=== PATIENT | female | born 1985 | race Caucasian/White ===

== ENCOUNTER 2019-07-31 08:05 | Inpatient (IN) | payer OTHER ==
[2019-07-31] MEDS ORDERED: SUCCINYLCHOLINE CHLORIDE 200 MG/10 ML INJ MDV ONE (08:08)
[2019-07-31] MEDS ORDERED: ETOMIDATE 20 MG/10 ML INJ IV ONE ×2 (08:08→08:19)
[2019-07-31] MEDS ORDERED: SODIUM CHLORIDE 0.9% 1000 ML 1,000 ML IV ONE ×2 (08:18→08:30)
[2019-07-31] MEDS ORDERED: SUCCINYLCHOLINE CHLORIDE 200 MG/10 ML INJ MDV IV ONE (08:19)
[2019-07-31] MEDS ORDERED: MINERAL OIL/PETROLATUM, WHITE OPHTH OINT 3.5 GM OU PRN (08:20)
[2019-07-31] MEDS ORDERED: LIP THERAPY VASELINE TP PRN (08:20)
--- NOTE | 2019-07-31 08:28 | Emergency Department Report ---
ED Altered Mental Status HPI - General Stated Complaint: UNRESPONSIVE Time Seen by Provider: 07/31/19 08:18 - History of Present Illness Initial Comments: Ms. Clifton is a 34 yo female with history of diabetes mellitus and anxiety who was found unresponsive at home by her brother. Brother is at the bedside. He heard her baby son crying. Her father wanted to know why she was not attending to him. Brother found her slumped behind the bathroom door. Upon arrival EMS notice agonal respirations. Extensor posturing. Pinpoint pupils. EMS was Unable to intubate because her mouth was clenched. Euglycemic 146 [address]. Brother unable to recall any additional history. Diabetes diagnosis appears to be new. Medications: Metformin meloxicam propanolol for anxiety viamin D Second brother explained that Ms. Clifton has had 2 weeks of shortness of breath and chest pain. She was evaluated at urgent care center recently. She has also had some fatigue. She had been taking Xanax for anxiety. On Saturday her PCP 2 days ago this medication was changed to propranolol. No indication of depression according to brothers. She texted her [id number] 2:30 am this morning she was not feeling this well. MD Complaint: altered mental status, decreased responsiveness -: This morning Severity: severe Consistency of Symptoms: constant Context: diabetes Treatments Prior to Arrival: oxygen - Related Data Allergies Allergy/AdvReac Type Severity Reaction Status Date / Time No Known Allergies Allergy Unverified 07/31/19 10:22 ED Review of Systems ROS: Stated complaint: UNRESPONSIVE Other details as noted in HPI Comment: Unobtainable due to pts medical conditions (critically ill altered M ENTAL STATUS) ED Past Medical Hx - Past Medical History Previous Medical History?: Yes Hx Diabetes: Yes - Surgical History Additional Surgical History: brother is unable to recall - Family History Family history: other (unknown) - Social History Smoking Status: Never Smoker Substance Use Type: None Other Social History: works at an office job, lives with 2 year old son, brother and father ED Physical Exam - General General appearance: obtunded, other (extensor posturing, grunting, extensor response to pain) - Head Head exam: Present: atraumatic, normocephalic - Eye Pupils: Present: other (pinpoint ) - ENT ENT exam: Present: normal orophraynx - Neck Neck exam: Present: normal inspection - Respiratory Respiratory exam: Present: respiratory distress, accessory muscle use, other (grunting) - Cardiovascular Cardiovascular Exam: Present: normal rhythm, tachycardia, normal heart sounds. Absent: systolic murmur, diastolic murmur - GI/Abdominal GI/Abdominal exam: Present: soft. Absent: distended, guarding, rebound - Extremities Exam Extremities exam: Present: normal inspection - Neurological Exam Neurological exam: Present: altered - Psychiatric Psychiatric exam: Present: other (altered unresponsive) - Skin Skin exam: Present: pallor, other (cool) - Assessment Assessment Interval: Baseline - Level of Consciousness 1a. Level of Consciousness: coma/unresponsive - LOC Questions 1b. LOC Questions: aphasic - LOC Command 1c. LOC Commands: performs no tasks correctly - Best Gaze 2. Best Gaze: normal - Visual 3. Visual: bilateral hemianopia - Facial Palsy 4. Facial Palsy: normal symmetrical movement - Motor Arm 5a. Motor Arm Left: some gravity effort 5b. Motor Arm Right: some gravity effort - Motor Leg 6a. Motor Leg Left: some gravity effort 6b. Motor Leg Right: some gravity effort - Limb Ataxia 7. Limb Ataxia: absent - Sensory 8. Sensory: coma/unresponsive - Best Language 9. Best Language: coma/unresponsive - Dysarthria 10. Dysarthria: mute/anarrthric - Extinction and Inattention 11. Extinction/Inattention: complete neglect - Scoring Total Score: 27 Stroke Severity: Severe Stroke ED Course Vital Signs 07/31/19 07/31/19 07/31/19 08:25 09:27 09:55 Temperature 98.5 F Pulse Rate 116 H Respiratory 26 H Rate Blood Pressure 137/117 O2 Sat by Pulse 100 106 H 100 Oximetry 07/31/19 12:46 Temperature Pulse Rate 90 Respiratory Rate Blood Pressure 90/45 O2 Sat by Pulse 97 Oximetry - Central Line Placement Right IJ Consent Obtained: emergent situation Time Out Performed: Yes Patient Placed on Monitor/Pulse Ox: Yes Prep: mask, gown, gloves, other (drape, cap ) Central Line Prep: Chlorhexidine scrub Ultrasound Used for Placement: Yes Central Line Lumen Inserted: triple Bloods Obtained for Lab: Yes Central Line Position: good blood return, all ports aspirated, flus, sutured in place with nyl Dressing Applied: Tegaderm Post Procedure X-Ray: tip of catheter in good p Patient Tolerated Procedure: well Complications: none - Intubation Time Out Performed: Yes Sedative: Etomidate Mg Given: 20 Mg Given: 120 Laryngoscope: fiberoptic video scope Size: 3 ET Tube Size: 7.5 Tube Secured Depth (cm): 22 Tube Secured Location: lips Tube Placement Confirmation: visualized tube passing t, equal breath sounds bilat, no breath sounds over epi Patient Tolerated Procedure: well Intubation Complications: none - Lab Data Result diagrams: 07/31/19 08:59 07/31/19 08:59 Lab Results 07/31/19 07/31/19 07/31/19 Range/Units 08:59 08:59 08:59 WBC 17.1 H (4.5-11.0) K/mm3 RBC 4.79 (3.65-5.03) M/mm3 Hgb 7.6 L (10.1-14.3) gm/dl Hct 26.9 L (30.3-42.9) % MCV 56 L (79-97) fl MCH 16 L (28-32) pg MCHC 28 L (30-34) % RDW 19.3 H (13.2-15.2) % Plt Count 346 (140-440) K/mm3 Lymph % (Auto) 11.2 L (13.4-35.0) % [place] % (Auto) 4.6 (0.0-7.3) % Eos % (Auto) 0.2 (0.0-4.3) % Baso % (Auto) 0.3 (0.0-1.8) % Lymph # 1.9 (1.2-5.4) K/mm3 [place] # 0.8 (0.0-0.8) K/mm3 Eos # 0.0 (0.0-0.4) K/mm3 Baso # 0.1 (0.0-0.1) K/mm3 Seg Neutrophils % 83.7 H (40.0-70.0) % Seg Neutrophils # 14.3 H (1.8-7.7) K/mm3 PT 13.5 (12.2-14.9) Sec. INR 1.04 (0.87-1.13) APTT 20.3 L (24.2-36.6) Sec. POC ABG pH (7.35-7.45) POC ABG pO2 (80-105) POC ABG HCO3 (22-26 mml/L) POC ABG Total CO2 (23-27mmol/L) POC ABG O2 Sat POC ABG Base Excess ((-2) - (+3)mmol/L) FiO2 % Sodium (137-145) mmol/L Potassium (3.6-5.0) mmol/L Chloride (98-107) mmol/L Carbon Dioxide (22-30) mmol/L Anion Gap mmol/L BUN (7-17) mg/dL Creatinine (0.7-1.2) mg/dL Estimated GFR ml/min BUN/Creatinine Ratio % Glucose (65-100) mg/dL Lactic Acid 3.10 H* (0.7-2.0) mmol/L Calcium (8.4-10.2) mg/dL Total Bilirubin (0.1-1.2) mg/dL AST (5-40) units/L ALT (7-56) units/L Alkaline Phosphatase (35-129) units/L Ammonia (25-60) umol/L Total Creatine Kinase (30-135) units/L Troponin T (0.00-0.029) ng/mL Total Protein (6.3-8.2) g/dL Albumin (3.9-5) g/dL Albumin/Globulin Ratio % TSH (0.270-4.200) mlU/mL Salicylates (2.8-20.0) mg/dL Plasma/Serum Alcohol (0-0.07) % 07/31/19 07/31/19 07/31/19 Range/Units 08:59 08:59 08:59 WBC (4.5-11.0) K/mm3 RBC (3.65-5.03) M/mm3 Hgb (10.1-14.3) gm/dl Hct (30.3-42.9) % MCV (79-97) fl MCH (28-32) pg MCHC (30-34) % RDW (13.2-15.2) % Plt Count (140-440) K/mm3 Lymph % (Auto) (13.4-35.0) % [place] % (Auto) (0.0-7.3) % Eos % (Auto) (0.0-4.3) % Baso % (Auto) (0.0-1.8) % Lymph # (1.2-5.4) K/mm3 [place] # (0.0-0.8) K/mm3 Eos # (0.0-0.4) K/mm3 Baso # (0.0-0.1) K/mm3 Seg Neutrophils % (40.0-70.0) % Seg Neutrophils # (1.8-7.7) K/mm3 PT (12.2-14.9) Sec. INR (0.87-1.13) APTT (24.2-36.6) Sec. POC ABG pH (7.35-7.45) POC ABG pO2 (80-105) POC ABG HCO3 (22-26 mml/L) POC ABG Total CO2 (23-27mmol/L) POC ABG O2 Sat POC ABG Base Excess ((-2) - (+3)mmol/L) FiO2 % Sodium 136 L (137-145) mmol/L Potassium 3.6 (3.6-5.0) mmol/L Chloride 105.1 (98-107) mmol/L Carbon Dioxide 15 L (22-30) mmol/L Anion Gap 20 mmol/L BUN 13 (7-17) mg/dL Creatinine 0.4 L (0.7-1.2) mg/dL Estimated GFR > 60 ml/min BUN/Creatinine Ratio 33 % Glucose 239 H (65-100) mg/dL Lactic Acid (0.7-2.0) mmol/L Calcium 7.7 L (8.4-10.2) mg/dL Total Bilirubin 0.40 (0.1-1.2) mg/dL AST 16 (5-40) units/L ALT 11 (7-56) units/L Alkaline Phosphatase 67 (35-129) units/L Ammonia 42.0 (25-60) umol/L Total Creatine Kinase 64 (30-135) units/L Troponin T 0.029 (0.00-0.029) ng/mL Total Protein 7.1 (6.3-8.2) g/dL Albumin 3.6 L (3.9-5) g/dL Albumin/Globulin Ratio 1.0 % TSH 0.803 (0.270-4.200) mlU/mL Salicylates (2.8-20.0) mg/dL Plasma/Serum Alcohol (0-0.07) % 07/31/19 07/31/19 07/31/19 Range/Units 08:59 08:59 09:50 WBC (4.5-11.0) K/mm3 RBC (3.65-5.03) M/mm3 Hgb (10.1-14.3) gm/dl Hct (30.3-42.9) % MCV (79-97) fl MCH (28-32) pg MCHC (30-34) % RDW (13.2-15.2) % Plt Count (140-440) K/mm3 Lymph % (Auto) (13.4-35.0) % [place] % (Auto) (0.0-7.3) % Eos % (Auto) (0.0-4.3) % Baso % (Auto) (0.0-1.8) % Lymph # (1.2-5.4) K/mm3 [place] # (0.0-0.8) K/mm3 Eos # (0.0-0.4) K/mm3 Baso # (0.0-0.1) K/mm3 Seg Neutrophils % (40.0-70.0) % Seg Neutrophils # (1.8-7.7) K/mm3 PT (12.2-14.9) Sec. INR (0.87-1.13) APTT (24.2-36.6) Sec. POC ABG pH 7.455 H (7.35-7.45) POC ABG pO2 273 H (80-105) POC ABG HCO3 13.6 (22-26 mml/L) POC ABG Total CO2 14 (23-27mmol/L) POC ABG O2 Sat 100 POC ABG Base Excess -10 ((-2) - (+3)mmol/L) FiO2 100 % Sodium (137-145) mmol/L Potassium (3.6-5.0) mmol/L Chloride (98-107) mmol/L Carbon Dioxide (22-30) mmol/L Anion Gap mmol/L BUN (7-17) mg/dL Creatinine (0.7-1.2) mg/dL Estimated GFR ml/min BUN/Creatinine Ratio % Glucose (65-100) mg/dL Lactic Acid (0.7-2.0) mmol/L Calcium (8.4-10.2) mg/dL Total Bilirubin (0.1-1.2) mg/dL AST (5-40) units/L ALT (7-56) units/L Alkaline Phosphatase (35-129) units/L Ammonia (25-60) umol/L Total Creatine Kinase (30-135) units/L Troponin T (0.00-0.029) ng/mL Total Protein (6.3-8.2) g/dL Albumin (3.9-5) g/dL Albumin/Globulin Ratio % TSH (0.270-4.200) mlU/mL Salicylates < 0.3 L (2.8-20.0) mg/dL Plasma/Serum Alcohol < 0.01 (0-0.07) % 07/31/19 11:23 EKG obtained 0916 Sinus tachycardia rate 100 beats a minute normal axis, QTc 530 milliseconds no S T elevation non-specific T-wave pattern no ST elevation - Radiology Data Radiology results: report reviewed Portable chest x-ray no acute findings ETT and gastric tube in appropriate position CT head CT C-spine without acute process CT angiography revealed left lung pneumonia without pulmonary thromboembolism CT abdomen shows mild periportal edema small amount of pericholecystic fluid - Medical Decision Making Ms. Clifton presents with altered mental status, unresponsive, GCS 4, pinpoint pupils, extensor posturing. Immediately intubated upon arrival. Due to hypotension CBL placed emergently. Differential diagnosis leading to possible anoxic brain injury: Pulmonary embolus, arrhythmia, myocardial infarction, intentional or unintentional drug overdose, sepsis Broad spectrum antibiotics ordered. CT chest/abd/pelvis pending admitted to hospitalist service in critical condition now requiring pressor support with levophed Critical Care Time: Yes Critical care time in (mins) excluding proc time.: 60 Critical care attestation.: If time is entered above; I have spent that time in minutes in the direct care of this critically ill patient, excluding procedure time. 60 minutes of critical care time excluding procedures were used in the care of the patient. Patient required multiple assessments and interventions. I revie wed the electronic medical record. I spoke with consultants involved in the care of the patient. ED Disposition Clinical Impression: Acute encephalopathy, Acute respiratory failure with hypoxia Disposition: OP ADMIT IP TO THIS HOSP Is pt being admited?: Yes Does the pt Need Aspirin: No Condition: Stable
[2019-07-31] MEDS ORDERED: VECURONIUM 10 MG INJ SDV IV ONE (08:29)
[2019-07-31] MEDS ORDERED: ROCURONIUM 50 MG/5 ML INJ IV ONE (08:32)
--- NOTE | 2019-07-31 09:26 | Cat Scan Report ---
CT BRAIN: 07/31/2019 INDICATION / CLINICAL INFORMATION: Altered Mental Status. COMPARISON: None available. FINDINGS: BRAIN/INTRACRANIAL STRUCTURES: Unenhanced CT images of the brain and a straight no evidence of acute intracranial abnormality. Ventricles and sulci are slightly prominent in size for a patient of this age, which may be an indica tion of mild cerebral atrophy. There is no evidence of acute ischemic injury, hemorrhage, or mass. There are no abnormal extra-axial fluid collections. EXTRACRANIAL STRUCTURES: Unremarkable. IMPRESSION: No acute abnormality. All CT scans at this location are performed using dose reduction to ALARA by means of automated expos ure control. Signer Name: Hudson Dela Cruz MD Signed: 07/31/2019 9:22 AM Workstation Name: [id number]
--- NOTE | 2019-07-31 09:26 | XRay Report ---
CHEST 1 VIEW INDICATION / CLINICAL INFORMATION: Altered Mental Status. COMPARISON: None available. FINDINGS: SUPPORT DEVICES: The endotracheal tube and esophagogastric tube both project in good position.. HEART / MEDIASTINUM: No significant abnormality. LUNGS / PLEURA: No significant pulmonary or pleural abnormality. No pneumothorax. ADDITIONAL FINDINGS: No significant additional findings. IMPRESSION: 1. No acute findings. Signer Name: Jean Marie Guerra MD Signed: 07/31/2019 9:21 AM Workstation Name: [id number]
[2019-07-31 09:33] LABS: Basophils # (Auto) 0.1 K/mm3 (0.0-0.1); Basophils % (Auto) 0.3 % (0.0-1.8); Eosinophils % (Auto) 0.2 % (0.0-4.3); Lymphocytes # (Auto) 1.9 K/mm3 (1.2-5.4); Lymphocytes % (Auto) 11.2 % (13.4-35.0); Mean Corpuscular HGB Conc 28 % (30-34); Monocytes # (Auto) 0.8 K/mm3 (0.0-0.8); Monocytes % (Auto) 4.6 % (0.0-7.3); Platelet Count 346 K/mm3 (140-440); Red Blood Count 4.79 M/mm3 (3.65-5.03); Red Cell Distribution Width 19.3 % (13.2-15.2)
[2019-07-31 09:34] LABS: Hematocrit 26.9 % (30.3-42.9); Hemoglobin 7.6 gm/dl (10.1-14.3); Mean Corpuscular Volume 56 fl (79-97)
[2019-07-31 09:36] LABS: Bacteria,Urine 1+ /HPF (Negative); Bilirubin,Urine NEG (Negative); Blood,Urine NEG (Negative); Color,Urine Straw (Yellow); Mucus,Urine FEW /HPF; Urobilinogen,Urine < 2.0 mg/dL (<2.0)
[2019-07-31 09:37] LABS: HCG Qualitative,Urine Negative (Negative)
--- NOTE | 2019-07-31 09:41 | Cat Scan Report ---
CT CERVICAL SPINE: 07/31/2019 INDICATION / CLINICAL INFORMATION: fall unresponsive. Trauma COMPARISON: None available. FINDINGS: CT images of the cervical spine were obtained. Images are evaluated in the axial, coronal, and sagit johnny planes. There is no evidence of acute abnormality. Vertebral body alignment is preserved. There is no evidence of loss of vertebral body height. There i s no evidence of subluxation. CRANIOCERVICAL JUNCTION: Unremarkable. PARASPINAL STRUCTURES: Unremarkable Numerous cervical lymph nodes are present bilaterally, all of which are within normal limits of size , although slightly more numerous than is typically seen in a patient of this age. This is a nonspeci fic finding. IMPRESSION: No acute abnormality. All CT scans at this location are performed using dose reduction to ALARA by means of automated expos ure control. Signer Name: Hudson Dela Cruz MD Signed: 07/31/2019 9:36 AM Workstation Name: [id number]
[2019-07-31 09:43] LABS: INR 1.04 (0.87-1.13)
[2019-07-31 09:44] LABS: Partial Thromboplastin Time 20.3 Sec. (24.2-36.6)
[2019-07-31 09:44] LABS: Amphetamine Screen,Urine PRESUMPTIVE NEGATIVE; Cannabinoid Screen,Urine PRESUMPTIVE NEGATIVE; Cocaine Screen,Urine PRESUMPTIVE NEGATIVE; Methadone Screen,Urine PRESUMPTIVE NEGATIVE; Opiate Screen,Urine PRESUMPTIVE NEGATIVE
[2019-07-31 09:45] LABS: Alanine Aminotransferase 11 units/L (7-56); Albumin 3.6 g/dL (3.9-5); BUN/Creatinine Ratio 33; Blood Urea Nitrogen 13 mg/dL (7-17); Calcium 7.7 mg/dL (8.4-10.2); Hemolysis Index 0
[2019-07-31 10:16] LABS: Benzodiazepines Screen,Urine PRESUMPTIVE POSITIVE
[2019-07-31] MEDS ORDERED: VANCOMYCIN/NS 1 GM/250 ML 1 GM/250 ML BAG IV ONE (10:24)
[2019-07-31] MEDS ORDERED: PIPERACIL/TAZOBACTA 4.5/NS 100 4.5 GM/100 ML VIAL IV ONE (10:24)
[2019-07-31] MEDS: NORepinephrine/NS 4 MG-250 ML 4 MG/250 ML BAG IV SCH ×2 (11:13→16:05)
[2019-07-31] MEDS ORDERED: VANCOMYCIN 1,250 MG in SODIUM CHLORIDE 0.9% 250ML 250 ML IV ONE (11:15)
--- NOTE | 2019-07-31 11:18 | History and Physical Report ---
History of Present Illness Date of examination: 07/31/19 Date of admission: 07/31/19 10:22 Chief complaint: Found on the floor unresponsive, pinpoint pupils History of present illness: 34-year-old female patient with significant past medical history of type 2 diabetes, mellitus anxiety disorder was found unconscious in the bathroom by the family, EMS found her to be in respiratory distress with agonal breathing, pinpoint pupils and extensor posturing. Could not be intubated due to rigidity. Patient's family reported that patient has not been feeling well for the last 2 weeks shortness of breath and vague chest pain, patient takes Xanax for her anxiety. Patient was seen by primary care physician who recommended propranolol. No history suggestive of depression, suicidal thoughts or ideation, no history suggestive of any drug overdose Patient's blood sugars were within normal range. No other history available. When I evaluated the patient patient is orally intubated, pinpoint pupils, responds only to deep stimuli Rigidity, and posturing Past History Past Medical History: diabetes, other (anxiety ) Past Surgical History: No surgical history Social history: lives with family. denies: smoking, alcohol abuse, prescription drug abuse Family history: hypertension Medications and Allergies Allergies Allergy/AdvReac Type Severity Reaction Status Date / Time No Known Allergies Allergy Unverified 07/31/19 10:22 Active Meds: Active Medications Hydrophilic Ointment (Vaseline Lip Therapy) 1 applic TP Q2HR PRN PRN Reason: Dry Lips Norepinephrine (Levophed Drip 4 Mg/Ns 250 Ml) 4 mg in 250 mls @ 7.5 mls/hr IV TITR SAIDA; Protocol Last Admin: 07/31/19 11:13 Dose: 2 mcg/min, 7.5 mls/hr Documented by: Vancomycin HCl 1,250 mg/ (Sodium Chloride) 275 mls @ 166.667 mls/hr IV ONCE ONE Stop: 07/31/19 12:53 Multi-Ingred Cream/Lotion/Oil/Oint (Artificial Tears Ophth Oint) 1 applic OU Q4HR PRN PRN Reason: Dry Eye(s) Vecuronium [place] (Vecuronium) 10 mg IV ONCE ONE Stop: 07/31/19 08:30 Review of Systems ROS unobtainable: due to mental status Exam - Constitutional Vitals: Temp Pulse Resp BP Pulse Ox 98.5 F 116 H 26 H 137/117 100 07/31/19 08:25 07/31/19 08:25 07/31/19 08:25 07/31/19 08:25 07/31/19 09:55 General appearance: Present: mild distress, well-nourished, other (intubated on vent, rigidity and posturing) - EENT Eyes: Present: PERRL (unequal pupils, pinpoint right side) ENT: other (endotracheal tube in place) - Neck Neck: Present: supple. Absent: enlarged thyroid - Respiratory Respiratory effort: normal Respiratory: bilateral: diminished, rhonchi, negative: rales, wheezing - Cardiovascular Rhythm: regular Heart Sounds: Present: S1 & S2 - Extremities Extremities: no ischemia, No edema, abnormal (rigidity posturing) - Abdominal General gastrointestinal: Present: soft, non-tender, non-distended, normal bowel sounds - Integumentary Integumentary: Present: clear, warm - Musculoskeletal Musculoskeletal: other (posturing rigidity) - Psychiatric Psychiatric: other ( intubated on vent) - Neurologic Neurologic: other (intubated on vent) Results - Labs CBC & Chem 7: 07/31/19 08:59 07/31/19 08:59 Labs: Abnormal lab results 07/31/19 07/31/19 07/31/19 Range/Units 08:59 08:59 08:59 WBC 17.1 H (4.5-11.0) K/mm3 Hgb 7.6 L (10.1-14.3) gm/dl Hct 26.9 L (30.3-42.9) % MCV 56 L (79-97) fl MCH 16 L (28-32) pg MCHC 28 L (30-34) % RDW 19.3 H (13.2-15.2) % Lymph % (Auto) 11.2 L (13.4-35.0) % Seg Neutrophils % 83.7 H (40.0-70.0) % Seg Neutrophils # 14.3 H (1.8-7.7) K/mm3 APTT 20.3 L (24.2-36.6) Sec. POC ABG pH (7.35-7.45) POC ABG pO2 (80-105) Sodium (137-145) mmol/L Carbon Dioxide (22-30) mmol/L Creatinine (0.7-1.2) mg/dL Glucose (65-100) mg/dL Lactic Acid 3.10 H* (0.7-2.0) mmol/L Calcium (8.4-10.2) mg/dL Albumin (3.9-5) g/dL Salicylates (2.8-20.0) mg/dL 07/31/19 07/31/19 07/31/19 Range/Units 08:59 08:59 09:50 WBC (4.5-11.0) K/mm3 Hgb (10.1-14.3) gm/dl Hct (30.3-42.9) % MCV (79-97) fl MCH (28-32) pg MCHC (30-34) % RDW (13.2-15.2) % Lymph % (Auto) (13.4-35.0) % Seg Neutrophils % (40.0-70.0) % Seg Neutrophils # (1.8-7.7) K/mm3 APTT (24.2-36.6) Sec. POC ABG pH 7.455 H (7.35-7.45) POC ABG pO2 273 H (80-105) Sodium 136 L (137-145) mmol/L Carbon Dioxide 15 L (22-30) mmol/L Creatinine 0.4 L (0.7-1.2) mg/dL Glucose 239 H (65-100) mg/dL Lactic Acid (0.7-2.0) mmol/L Calcium 7.7 L (8.4-10.2) mg/dL Albumin 3.6 L (3.9-5) g/dL Salicylates < 0.3 L (2.8-20.0) mg/dL Assessment and Plan --Metabolic Encephalopathy; Altered level of consciousness, multifactorial Supportive care --Rigidity/Decerebrate posturing; R/O acute CVA. Neuro consult, Neuro workup MRI/MRA,EEG, Possible transfer to Neuro ICU --Acute Hypoxic Resp Failure; requiring intubation Nebulizers, IV antibiotics, pulmonary consult Wean as tolerated and extubate --Diffuse left-sided pneumonia; Empiric antibiotics, follow cultures, pulmonary, ID evaluation --Septic Shock/Hypotension: Secondary to left pneumonia, UTI and sepsis Treat the underlying cause , ID consult --Sepsis/UTI; empiric antibiotics and follow cultures --Elevated D-Dimers; CTA negative for PE --DM type 2; Accu-Chek sliding scale coverage ADA diet, insulin as needed --H/O Anxiety; Patient is intubated, supportive care --DVT prophylaxis; Lovenox. Very poor prognosis Follow consults and recommendations Plan of care discussed with family members at the bedside Critical care time 60 minutes
[2019-07-31] MEDS ORDERED: ALBUTEROL 2.5 MG/3 ML NEBU IH PRN (11:21)
[2019-07-31] MEDS ORDERED: SODIUM CHLORIDE 0.9% 1000 ML 1,000 ML ONE ×2 (11:22→14:55)
--- NOTE | 2019-07-31 11:47 | XRay Report ---
CHEST 1 VIEW 07/31/2019 11:28 AM INDICATION / CLINICAL INFORMATION: CVL placement. COMPARISON: Chest x-ray done earlier on 07/31/2019 FINDINGS: SUPPORT DEVICES: Right IJ central venous catheter has been placed with the tip projecting over the mi d SVC. Otherwise and tubes are stable. HEART / MEDIASTINUM: No significant abnormality. LUNGS / PLEURA: No significant pulmonary or pleural abnormality. No pneumothorax. ADDITIONAL FINDINGS: No significant additional findings. IMPRESSION: 1. Right IJ central venous catheter tip projects over the mid SVC. Signer Name: Chandan Johnson MD Signed: 07/31/2019 11:43 AM Workstation Name: [id number]
[2019-07-31] MEDS ORDERED: SODIUM CHLORIDE 0.9% 1000 ML 1,000 ML IV SCH (12:00)
[2019-07-31] MEDS ORDERED: INSULIN LISPRO 100 UNIT/ML SUB-Q SCH (12:00)
[2019-07-31] MEDS ORDERED: CEFEPIME/NS 2 GM/100 ML 2 GM/100 ML BAG IV SCH (14:00)
[2019-07-31] MEDS ORDERED: PIPERACIL/TAZOBACTA 4.5/NS 100 0 GM/0 ML VIAL IV ONE (14:55)
--- NOTE | 2019-07-31 14:57 | Cat Scan Report ---
CT angiography of the chest with 2-D reconstructions INDICATION: Respiratory failure Thin section axial images were obtained as well as 2-D reformatted MIP images in all 3 planes FINDINGS: Endotracheal tube is in place as well as NG tube. There is no hilar or mediastinal adenopat hy. Only trace pleural effusions are seen. No pericardial fluid. Lung windows show extensive left maria luisa g consolidation with alveolar consolidation involving the majority of the left lower lobe and portion s of the left upper lobe as well. Only slight density in the right upper and right lower lobes is see n. No lung abscess or areas of lung necrosis seen. There is no thoracic aortic aneurysm or dissection . Routine axial images as well as 2-D MIPS reconstructions through the pulmonary arteries show no nani dence of emboli. CT of the abdomen shows mild periportal edema in the liver which is otherwise unremarkable. May be a small amount of pericholecystic fluid around the gallbladder as well. NG tube is seen extending into the stomach. The spleen, pancreas, adrenal glands and kidneys are unremarkable. No biliary tree dilat ion. No adenopathy is seen. CT of the pelvis shows a normal appendix. No uterine or right adnexal masses. There is a 1 cm partial ly collapsed left ovarian cyst with minimal free pelvic fluid. Martines catheter is seen in the bladder. No pelvic or inguinal adenopathy. No diverticulosis or diverticulitis. No significant bone lesion. IMPRESSION: Relatively diffuse left lung pneumonia without PTE. The abdomen and pelvis are unremarkab le. Automated exposure control was utilized to diminish radiation dose. Signer Name: Augustine Gutierrez MD Signed: 07/31/2019 2:53 PM Workstation Name: [id number]
[2019-07-31] MEDS ORDERED: CEFEPIME/NS 2 GM/100 ML 2 GM/100 ML BAG IV ONE (15:19)
[2019-07-31] MEDS ORDERED: VANCOMYCIN/NS 1 GM/250 ML 1 GM/250 ML BAG IV SCH (16:00)
[2019-07-31] MEDS ORDERED: NORepinephrine/NS 4 MG-250 ML 4 MG/250 ML BAG IV ONE (16:26)
--- NOTE | 2019-07-31 17:52 | Consultation ---
History of Present Illness Consult date: 07/31/19 Chief complaint: unresponsive History of present illness: This is a 34 YO F with diabetes and anxiety who was found down by family members this morning. No recent illness or new meds. Brother at bedside said his dad heard her get up and go to the bathroom to get ready for work and later they found her collapsed on the floor. Since being the in the ED she has been noted to have a blown unreactive pupil on the left and decerebrate posturing. Past History Past Medical History: diabetes, other (anxiety ) Past Surgical History: No surgical history Social history: lives with family. denies: smoking, alcohol abuse, prescription drug abuse Family history: hypertension Medications and Allergies Allergies Allergy/AdvReac Type Severity Reaction Status Date / Time No Known Allergies Allergy Unverified 07/31/19 10:22 Active Meds: Active Medications Albuterol (Proventil) 2.5 mg IH Q4HRT PRN PRN Reason: Shortness Of Breath Enoxaparin Sodium (Enoxaparin) 40 mg SUB-Q QDAY@2200 SAIDA Hydrophilic Ointment (Vaseline Lip Therapy) 1 applic TP Q2HR PRN PRN Reason: Dry Lips Norepinephrine (Levophed Drip 4 Mg/Ns 250 Ml) 4 mg in 250 mls @ 7.5 mls/hr IV TITR SAIDA; Protocol Last Titration: 07/31/19 12:25 Dose: 16 mcg/min, 60 mls/hr Documented by: Sodium Chloride (Nacl 0.9% 1000 Ml) 1,000 mls @ 150 mls/hr IV DIRECT SAIDA Last Admin: 07/31/19 15:00 Dose: 150 mls/hr Documented by: Cefepime HCl (Cefepime/Ns 2 Gm/100 Ml) 2 gm in 100 mls @ 200 mls/hr IV Q8HR SAIDA; Protocol Last Admin: 07/31/19 15:23 Dose: 200 mls/hr Documented by: Vancomycin HCl (Vancomycin/Ns 1 Gm/250 Ml) 1 gm in 250 mls @ 166.667 mls/hr IV Q12H SAIDA Insulin Human Lispro (Humalog) 0 unit SUB-Q Q6HR SAIDA; Protocol Last Admin: 07/31/19 13:53 Dose: 4 unit Documented by: Multi-Ingred Cream/Lotion/Oil/Oint (Artificial Tears Ophth Oint) 1 applic OU Q4HR PRN PRN Reason: Dry Eye(s) Pantoprazole Sodium (Protonix) 40 mg IV QDAY SAIDA Vecuronium [place] (Vecuronium) 10 mg IV ONCE ONE Stop: 07/31/19 08:30 Review of Systems ROS unobtainable: due to mental status Physical Examination - Vital Signs Vital Signs: Vital Signs Temp Pulse Resp BP Pulse Ox 98.5 F 116 H 26 H 137/117 100 07/31/19 08:25 07/31/19 08:25 07/31/19 08:25 07/31/19 08:25 07/31/19 08:25 - Constitutional General appearance: acutely ill - EENT EENT: Present: mucous membranes moist - Respiratory Respiratory: Present: lungs clear - Cardiovascular Cardiovascular: Present: regular rate - Gastrointestinal Gastrointestinal: Present: normoactive bowel sounds - Neurologic Cranial nerve examination: Intact Vestibulo-ocular r, intact corneal reflex, other (right pupil 3mm left pupil 6 mm) Posture: decerebrate - Additional Exam Additional Exam: bilateral upgoing toes Results - Laboratory Findings CBC and BMP: 07/31/19 08:59 07/31/19 08:59 Abnormal Lab Findings: Abnormal Labs 07/31/19 07/31/19 07/31/19 08:59 08:59 08:59 WBC 17.1 H Hgb 7.6 L Hct 26.9 L MCV 56 L MCH 16 L MCHC 28 L RDW 19.3 H Lymph % (Auto) 11.2 L Seg Neutrophils % 83.7 H Seg Neutrophils # 14.3 H APTT 20.3 L D-Dimer POC ABG pH POC ABG pO2 Sodium Carbon Dioxide Creatinine Glucose POC Glucose Hemoglobin A1c Lactic Acid 3.10 H* Calcium Albumin Salicylates 07/31/19 07/31/19 07/31/19 08:59 08:59 09:50 WBC Hgb Hct MCV MCH MCHC RDW Lymph % (Auto) Seg Neutrophils % Seg Neutrophils # APTT D-Dimer POC ABG pH 7.455 H POC ABG pO2 273 H Sodium 136 L Carbon Dioxide 15 L Creatinine 0.4 L Glucose 239 H POC Glucose Hemoglobin A1c Lactic Acid Calcium 7.7 L Albumin 3.6 L Salicylates < 0.3 L 07/31/19 07/31/19 07/31/19 10:45 10:45 12:53 WBC Hgb Hct MCV MCH MCHC RDW Lymph % (Auto) Seg Neutrophils % Seg Neutrophils # APTT D-Dimer 619.66 H POC ABG pH POC ABG pO2 Sodium Carbon Dioxide Creatinine Glucose POC Glucose 257 H Hemoglobin A1c Lactic Acid 3.00 H* Calcium Albumin Salicylates 07/31/19 07/31/19 12:55 12:55 WBC Hgb Hct MCV MCH MCHC RDW Lymph % (Auto) Seg Neutrophils % Seg Neutrophils # APTT D-Dimer POC ABG pH POC ABG pO2 Sodium Carbon Dioxide Creatinine Glucose POC Glucose Hemoglobin A1c 9.8 H Lactic Acid 3.90 H* Calcium Albumin Salicylates - Diagnostic Findings Additional findings: CT head personally reviewed- read as normal but appears to have decreased sulcal markings ?> L that would suggest cerebral edema Assessment and Plan This is a critically ill patient with unequal pupils and decerebrate posturing Recommend: STAT MRI Brain Needs vessel imaging as well STAT EEG Spoke to Dr. Chi- would strongly recommend urgent transfer, needs these tests urgently and to be in a facility with neurology on staff, might also end up needing neurosurgery which is not available here Will give a Load of Keppra just to cover for seizure as well since no EEG is available POC discussed with patient's family at the bedside and Dr. Chi
[2019-07-31] MEDS ORDERED: levETIRAcetam 1,000 MG in SODIUM CHLORIDE 0.9% 100 ML IV ONE (18:02)
--- NOTE | 2019-07-31 18:27 | Discharge Summary ---
Providers - Providers Date of Admission: 07/31/19 10:22 Date of discharge: 07/31/19 Attending physician: PRADEEP MUHAMMAD 07/31/19 15:50 Consult to Physician [CONS] Routine Comment: Consulting Provider: EMA AUGUSTINE Physician Instructions: Reason For Exam: Ac.Resp failure/intubated/septic shock/Pneumonia 07/31/19 15:52 Consult to Physician [CONS] Routine Comment: Consulting Provider: HEATHER IBARRA Physician Instructions: Reason For Exam: septic shock/diffuse pneumonia 07/31/19 16:36 Consult to Physician [CONS] Routine Comment: Consulting Provider: SANDY HOPSON Physician Instructions: Reason For Exam: Unresponsive /Posturing /unequal pupils Primary care physician: TRIM INSTALLER Hospitalization Reason for admission: Unresponsive Condition: Critical Pertinent studies: CT head CTA chest CT abd CT C- spine Hospital course: 34-year-old female patient with significant past medical history of type 2 diabetes, mellitus anxiety disorder was found unconscious in the bathroom by the family, EMS found her to be in respiratory distress with agonal breathing, pinpoint pupils and extensor posturing. Could not be intubated due to rigidity. Patient's family reported that patient has not been feeling well for the last 2 weeks shortness of breath and vague chest pain, patient takes Xanax for her anxiety. Patient was seen by primary care physician who recommended propranolol. No history suggestive of depression, suicidal thoughts or ideation, no history suggestive of any drug overdose Patient's blood sugars were within normal range. No other history available. When I evaluated the patient patient is orally intubated, pinpoint pupils, responds only to deep stimuli Rigidity, and decerebrate posturing and anisocoria. Evaluated by the neurologist.Rec transfer to a facility where neuro ICU facility is available for close monitoring and for further evaluation and management. D/W at [facility] neuro history tutor and patient is being airlifted. Discussed with family ,the Nurse,charge nurse and nursing food production supervisor. Diagnosis: --Metabolic Encephalopathy; Altered level of consciousness, multifactorial --Rigidity/Decerebrate posturing; R/O acute CVA. Neuro consult, Neuro workup MRI/MRA,EEG, Possible transfer to Neuro ICU --Acute Hypoxic Resp Failure; requiring intubation Nebulizers, IV antibiotics, pulmonary consult Wean as tolerated and extubate --Diffuse left-sided pneumonia; Empiric antibiotics, follow cultures, pulmonary, ID evaluation --Septic Shock/Hypotension: Secondary to left pneumonia, UTI and sepsis Treat the underlying cause , ID consult --Sepsis/UTI; empiric antibiotics and follow cultures --Elevated D-Dimers; CTA negative for PE --DM type 2; Accu-Chek sliding scale coverage ADA diet, insulin as needed --H/O Anxiety; Patient is intubated, supportive care --DVT prophylaxis; Lovenox. Very poor prognosis Transfer the Patient to [facility] Patient is critically ill with very poor and guarded prognosis. Family aware. Disposition: [id number]/TX-[id number] SHRT-TRM GEN HOSP IP Time spent for discharge: 32 min Core Measure Documentation - Palliative Care Palliative Care/ Comfort Measures: Not Applicable - Core Measures Any of the following diagnoses?: none Exam - Constitutional Vitals: Temp Pulse Resp BP Pulse Ox 98.5 F 94 H 26 H 90/45 98 07/31/19 08:25 07/31/19 16:24 07/31/19 08:25 07/31/19 12:46 07/31/19 16:24 General appearance: Present: mild distress, well-nourished, other (Pin point pupils) - Neck Neck: Present: supple - Respiratory Respiratory effort: normal Respiratory: bilateral: diminished, rhonchi, negative: rales, wheezing - Cardiovascular Rhythm: regular Heart Sounds: Present: S1 & S2 - Extremities Extremities: no ischemia, No edema, abnormal (posturing) - Abdominal General gastrointestinal: Present: soft, non-tender, non-distended, normal bowel sounds - Integumentary Integumentary: Present: clear, warm - Musculoskeletal Musculoskeletal: other (rigidity,decerebrate posturing) - Psychiatric Psychiatric: other (unresponsive) - Neurologic Neurologic: other (unresponsive) Plan Additional Instructions: Transfer to Neuro intensive care unit [facility] Follow up with: PRIMARY MD LARISSA [Primary Care Provider] - 3-5 Days
[2019-07-31 20:11] VITALS: BP 124/60
[2019-07-31] MEDS ORDERED: ENOXAPARIN 40 MG/0.4 ML INJ SUB-Q SCH (22:00)
[2019-08-01] MEDS ORDERED: VANCOMYCIN/NS 1 GM/250 ML 1 GM/250 ML BAG IV SCH (00:01)
[2019-08-01] MEDS ORDERED: PANTOPRAZOLE 40 MG INJ IV SCH (10:00)
== END 2019-07-31 19:45 | disposition short-term general hospital (02) | DRG 871 ==
LOC: ED 08:05 → CC1 10:22
PROVIDERS: ADMIT Internal Medicine; ATTEND Internal Medicine
PROC: 4A033R1 Measurement of Arterial Saturation, Peripheral, Percutaneous Approach (ICD-10-PCS; principal; 2019-07-31)
PROC: 5A1935Z Respiratory Ventilation, Less than 24 Consecutive Hours (ICD-10-PCS; 2019-07-31)
PROC: 0BH17EZ Insertion of Endotracheal Airway into Trachea, Via Natural or Artificial Opening (ICD-10-PCS; 2019-07-31)
PROC: 02HV33Z Insertion of Infusion Device into Superior Vena Cava, Percutaneous Approach (ICD-10-PCS; 2019-07-31)
PROC: B548ZZA Ultrasonography of Superior Vena Cava, Guidance (ICD-10-PCS; 2019-07-31)
DX: A41.9 Sepsis, unspecified organism (principal); G93.41 Metabolic encephalopathy; R65.21 Severe sepsis with septic shock; J18.9 Pneumonia, unspecified organism; J96.01 Acute respiratory failure with hypoxia; I63.9 Cerebral infarction, unspecified; N39.0 Urinary tract infection, site not specified; E11.9 Type 2 diabetes mellitus without complications; F41.9 Anxiety disorder, unspecified; Z82.49 Family history of ischemic heart disease and other diseases of the circulatory system
CPT/HCPCS: 31500; 36415; 70450; 71045; 71275; 72125; 74177; 80053; 80307; 80320; 81001; 81025; 82140; 82550; 82803; 82962; 83036; 84443; 84484; 85025; 85379; 85610; 85730; 87040; 87086; 87205; 93005; 93010; 94002; 94003; 96374; 96375; G0378; G0480; J0330; J0692; J1815; J2543; J3370; J7030; J7050; Q9967